=== PATIENT | female | born 1975 | race African-American/Black ===

== ENCOUNTER 2017-07-02 03:56 | Emergency (ER) | payer OTHER ==
[~2017-07-02] VITALS: Ht 167.6 cm; Wt 77.1 kg
[2017-07-02] MEDS ORDERED: SENNA-DOCUSATE1 EACH PO (05:28)
[2017-07-02] MEDS ORDERED: NORCO 5-325 TA1 EACH PO (05:28)
[2017-07-02] MEDS ORDERED: IBUPROFEN 600600 M1 PO (05:28)
[2017-07-02 07:43] VITALS: BP 98/65
== END 2017-07-02 07:45 | disposition home or self-care (01) ==
LOC: ER 03:56
DX: S82.842A Displaced bimalleolar fracture of left lower leg, initial encounter for closed fracture (principal); F10.99 Alcohol use, unspecified with unspecified alcohol-induced disorder; Z88.1 Allergy status to other antibiotic agents; Z77.22 Contact with and (suspected) exposure to environmental tobacco smoke (acute) (chronic); W10.8XXA Fall (on) (from) other stairs and steps, initial encounter; Y93.89 Activity, other specified; Y92.89 Other specified places as the place of occurrence of the external cause; Y99.8 Other external cause status